=== PATIENT | female | born 1935 | race Caucasian/White ===

== ENCOUNTER 2016-07-01 13:53 | Inpatient (IN) | payer MEDICARE, OTHER ==
[~2016-07-01] VITALS: Ht 152.4 cm; Wt 44.0 kg
[~2016-07-01 13:53] MED LIST: ALBU2.5V13 IH; ALBU8.5H2 IH; ASPI81TA2 PO; DOCU100T2 PO; ENOX30DI SQ; FLUT1DIS27 IH; HYDR-3326 PO; LEVO500T15 PO; PANT40TA2 PO; SENN8.6T22 PO; TIOT18CA3 IH
--- NOTE | 2016-07-01 13:53 | NUR ---
BIB RA C/O SOB X 3 DAYS FROM HOME. NAD NOTED. PT AAO X3, STATES RELIEF UPON ARRIVAL. O2 SAT 100%. AWAITING MD FOR EVAL.
--- NOTE | 2016-07-01 14:18 | NUR ---
DAUGHTER AT BEDSIDE.
[2016-07-01] MEDS ORDERED: ALPRAZOLAM 0.25 MG TABLET PO ONE (14:30)
[2016-07-01 14:48] LABS: BASOPHILS % (AUTO) 0.5 % (0.0-2.0); EOSINOPHILS # (AUTO) 0.3 /CMM (0.0-0.7); EOSINOPHILS % (AUTO) 5.1 % (0.0-6.0); HEMATOCRIT 37 % (33-45); HEMOGLOBIN 12.4 g/dL (11.5-14.8); LYMPHOCYTES # (AUTO) 1.4 /CMM (0.8-4.8); LYMPHOCYTES % (AUTO) 23.5 % (20.0-44.0); MEAN CORPUSCULAR HEMOGLOBIN 32 PG (26.0-33.0); MEAN CORPUSCULAR HGB CONC 34 g/dl (31.0-36.0); MEAN CORPUSCULAR VOLUME 95 fL (82-100); MONOCYTES # (AUTO) 0.6 /CMM (0.1-1.30); MONOCYTES % (AUTO) 10.6 % (2.0-12.0); NEUTROPHILS # (AUTO) 3.8 /CMM (1.8-8.9); NEUTROPHILS % (AUTO) 60.3 % (43.0-81.0); PLATELET COUNT (AUTO) 249 /CMM (150-450); RDW COEFFICIENT OF VARIATION 12.7 (11.5-15.0); RED BLOOD CELL COUNT(AUTO) 3.91 MIL/uL (4.0-5.2); WHITE BLOOD COUNT (AUTO) 6.1 K/uL (4.3-11.0)
--- NOTE | 2016-07-01 14:48 | NUR ---
PER DAUGHTER WILL GIVE PATIENT THE XANAX 0.25; OK'D BY
[2016-07-01 14:58] LABS: CALCIUM, SERUM 9.4 mg/dL (8.5-10.1); CHLORIDE 105 mmol/L (98-107); CREATININE 0.6 mg/dL (0.6-1.3); GLUCOSE 105 mg/dL (74-106); POTASSIUM 4.6 mmol/L (3.5-5.1); SODIUM SERUM 142 mmol/L (136-145); UREA NITROGEN, BLOOD 23 mg/dL (7-18)
[2016-07-01 15:00] LABS: CARBON DIOXIDE 40 mmol/L (21-32)
[2016-07-01 15:05] LABS: TROPONIN I < 0.017 ng/mL (0.00-0.056)
[2016-07-01 15:10] LABS: B-TYPE NATRIURETIC PEPTIDE 103 PG/ML (0-125)
[2016-07-01] MEDS ORDERED: ALPR0.255 PO (15:48)
[2016-07-01] MEDS ORDERED: BUDE10.22 IH (15:48)
[2016-07-01] MEDS ORDERED: MULT1TAB73 PO (15:48)
[2016-07-01] MEDS ORDERED: CHOL100040 PO (15:48)
[2016-07-01] MEDS ORDERED: CRAN300T PO (15:48)
--- NOTE | 2016-07-01 15:50 | NUR ---
REPORT GIVEN TO LISA ROMERO FOR ALEE
[2016-07-01] MEDS ORDERED: CT SWABBABLE VALVE TRANS SET 1 EA INFUS.SET MC ONE (16:16)
[2016-07-01] MEDS ORDERED: IV NS 0.9% 250 ML IV ONE (16:16)
[2016-07-01] MEDS ORDERED: IOHEXOL-350 100 ML VIAL IV ONE (16:16)
[2016-07-01] MEDS ORDERED: ACETAMINOPHEN 325 MG TABLET PO PRN (17:00)
[2016-07-01] MEDS ORDERED: ONDANSETRON HCL/PF 4 MG/2 ML VIAL IVP PRN (17:00)
--- NOTE | 2016-07-01 17:00 | NUR ---
RN NOTES RECEIVED PT FROM ER- TRANSPORTED VIA GURNEY, ACCOMPANIED BY 1 TECH AND 1 RN. PT IN NO APPARENT DISTRESS. VS T- 98.4 BP- 136/80 P- 116 R- 22 O2 SAT @ 3LPM VIA NC -96%. PT ADMITTED FOR CHIEF COMPLAINT OF SHORTNESS OF BREATH. ADMITTED UNDER [facility], UNDER THE CARE OF DR ALEJANDRO. DIAGNOSIS- COPD EXACERBATION. PT ADMITTED FOR TELE SERVICES. UNABLE TO DO FULL SKIN AND BODY ASSESSMENT- PT ONLY ALLOWED UPPER BODY CHECK AT THIS TIME. NOTED INTACT. PT NOTED WITH SOME TRACE EDEMA ON BLE. DAUGHTER ON BEDSIDE. WILL CONTINUE TO MONITOR
[2016-07-01] MEDS: methylPREDNISolone SOD SUCC 40 MG/ML VIAL IV SCH (17:41)
--- NOTE | 2016-07-01 18:30 | NUR ---
RN NOTES PT IN BED. AWAKE, ALERT, ORIENTED X 3. IN NO APPARENT DISTRESS. RESPIRATIONS EVEN AND UNLABORED. DENIES PAIN AT THIS TIME. WILL ENDORSE TO ONCOMING SHIFT
[2016-07-01] MEDS ORDERED: ALBUTEROL FS 2.5 MG/3 ML VIAL.NEB NEB PRN (19:30)
[2016-07-01] MEDS: IPRATROPIUM NEB FS 0.5 MG/2.5 ML AMPUL.NEB NEB SCH (19:55)
[2016-07-01] MEDS: ALBUTEROL FS 2.5 MG/3 ML VIAL.NEB NEB SCH (19:55)
[2016-07-01 20:00] VITALS: BP 135/59
[2016-07-01] MEDS: SENNOSIDES 8.6 MG TABLET PO SCH (21:41)
[2016-07-01] MEDS: AZITHROMYCIN 250 MG TABLET PO SCH (21:41)
[2016-07-01 22:00] VITALS: BP 135/59
[2016-07-01] MEDS: Budesonide/Formoterol Fumarate (Symbicort 80-4.5 Mcg Inh INH SCH (22:59)
[2016-07-02] VITALS: BP 118/50
[2016-07-02] MEDS: ALBUTEROL FS 2.5 MG/3 ML VIAL.NEB NEB SCH ×4 (00:52→20:14)
[2016-07-02] MEDS: IPRATROPIUM NEB FS 0.5 MG/2.5 ML AMPUL.NEB NEB SCH ×4 (00:52→20:14)
[2016-07-02 04:00] VITALS: BP 101/52
[2016-07-02 07:52] LABS: BASOPHILS % (AUTO) 0.2 % (0.0-2.0); EOSINOPHILS % (AUTO) 0.1 % (0.0-6.0); HEMATOCRIT 34 % (33-45); HEMOGLOBIN 11.6 g/dL (11.5-14.8); LYMPHOCYTES # (AUTO) 0.9 /CMM (0.8-4.8); LYMPHOCYTES % (AUTO) 14.8 % (20.0-44.0); MEAN CORPUSCULAR HEMOGLOBIN 33 PG (26.0-33.0); MEAN CORPUSCULAR HGB CONC 34 g/dl (31.0-36.0); MEAN CORPUSCULAR VOLUME 96 fL (82-100); MONOCYTES # (AUTO) 0.6 /CMM (0.1-1.30); MONOCYTES % (AUTO) 9.7 % (2.0-12.0); NEUTROPHILS # (AUTO) 4.8 /CMM (1.8-8.9); NEUTROPHILS % (AUTO) 75.2 % (43.0-81.0); PLATELET COUNT (AUTO) 227 /CMM (150-450); RDW COEFFICIENT OF VARIATION 13.3 (11.5-15.0); RED BLOOD CELL COUNT(AUTO) 3.58 MIL/uL (4.0-5.2); WHITE BLOOD COUNT (AUTO) 6.3 K/uL (4.3-11.0)
[2016-07-02 08:00] VITALS: BP_SYST 104; BP_SYST 124; BP_DIAS 60
[2016-07-02 08:05] LABS: ALBUMIN 3.1 g/dL (3.4-5.0); BILIRUBIN,TOTAL 0.2 mg/dL (0.2-1.0); CALCIUM, SERUM 8.9 mg/dL (8.5-10.1); CREATININE 0.6 mg/dL (0.6-1.3); MAGNESIUM 2.4 mg/dL (1.8-2.4); PHOSPHORUS 3.1 mg/dL (2.5-4.9); POTASSIUM 5.1 mmol/L (3.5-5.1); TOTAL PROTEIN, SERUM 6.3 g/dL (6.4-8.2)
[2016-07-02] MEDS: CHOLECALCIFEROL 1,000 UNIT TABLET (VIT D3) PO SCH (08:19)
[2016-07-02] MEDS: PANTOPRAZOLE 40 MG TABLET.DR PO SCH (08:19)
[2016-07-02] MEDS: methylPREDNISolone SOD SUCC 40 MG/ML VIAL IV SCH ×3 (08:20→18:15)
[2016-07-02] MEDS: ASPIRIN 81 MG TAB.CHEW PO SCH (08:20)
[2016-07-02] MEDS: MULTIVITAMINS,THERAPEUTIC 1 UDTAB TABLET PO SCH (08:20)
[2016-07-02] MEDS: ALPRAZOLAM 0.25 MG TABLET PO SCH ×3 (08:20→18:15)
[2016-07-02] MEDS: DOCUSATE SODIUM 100 MG CAPSULE PO SCH (08:20)
[2016-07-02] MEDS ORDERED: CRANBERRY EXTRACT PO SCH (09:00)
[2016-07-02] MEDS: Budesonide/Formoterol Fumarate (Symbicort 80-4.5 Mcg Inh INH SCH (11:07)
[2016-07-02] MEDS ORDERED: IOHEXOL-350 100 ML VIAL IV ONE (12:00)
--- NOTE | 2016-07-02 14:39 | NUR ---
GOT A PHONE CALL FROM [facility] REGARDING MRSA SWAB RESULT. IT IS POSITIVE ON NARES.
[2016-07-02 16:00] VITALS: BP 103/58
--- NOTE | 2016-07-02 18:34 | NUR ---
PT. AWAKE, ALERT AND ORIENTED X4. DENIED PAIN AND SOB. CONTACT ISOLATION. SIDE RAILS UP. CALL LIGHT WITHIN REACH. MONITOR CLOSELY.
--- NOTE | 2016-07-02 19:30 | NUR ---
MS/RN RECEIVE PATIENT AWAKE, ALERT, ORIENTED, COMFORTABLE, NO C/O PAIN, NO DISTRESS NOTED, CALL LIGHT IN REACH. FALL PRECAUTION PER PROTOCOL. WILL MONITOR.
[2016-07-02 20:00] VITALS: BP 110/73
[2016-07-02] MEDS: AZITHROMYCIN 250 MG TABLET PO SCH (20:21)
[2016-07-03] MEDS: SENNOSIDES 8.6 MG TABLET PO SCH (00:59)
[2016-07-03] MEDS: Budesonide/Formoterol Fumarate (Symbicort 80-4.5 Mcg Inh INH SCH ×2 (00:59→12:15)
[2016-07-03] MEDS: ALBUTEROL FS 2.5 MG/3 ML VIAL.NEB NEB SCH ×2 (01:47→08:31)
[2016-07-03] MEDS: IPRATROPIUM NEB FS 0.5 MG/2.5 ML AMPUL.NEB NEB SCH ×2 (01:48→08:31)
--- NOTE | 2016-07-03 06:04 | NUR ---
MS/RN AWAKE, COMFORTABLE, NO CHANGE IN CONDITION. ALL NEEDS ATTENDED AT THIS TIME. WILL CONTIUE TO MONITOR.
--- NOTE | 2016-07-03 07:30 | NUR ---
RECEIVE PATIENT AWAKE, ALERT, ORIENTED, WITH O2 AT 2 L/ MIN, COMFORTABLE, NO C/O PAIN, NO DISTRESS NOTED, CALL LIGHT IN REACH. WILL CONTINUE TO MONITOR.
[2016-07-03 08:00] VITALS: BP 114/53
[2016-07-03 08:31] LABS: BASOPHILS % (AUTO) 0.2 % (0.0-2.0); HEMATOCRIT 34 % (33-45); HEMOGLOBIN 11.3 g/dL (11.5-14.8); LYMPHOCYTES # (AUTO) 1.1 /CMM (0.8-4.8); LYMPHOCYTES % (AUTO) 11.1 % (20.0-44.0); MEAN CORPUSCULAR HEMOGLOBIN 32 PG (26.0-33.0); MEAN CORPUSCULAR HGB CONC 34 g/dl (31.0-36.0); MEAN CORPUSCULAR VOLUME 96 fL (82-100); NEUTROPHILS % (AUTO) 78.7 % (43.0-81.0); PLATELET COUNT (AUTO) 228 /CMM (150-450); RDW COEFFICIENT OF VARIATION 13.1 (11.5-15.0); RED BLOOD CELL COUNT(AUTO) 3.52 MIL/uL (4.0-5.2); WHITE BLOOD COUNT (AUTO) 10.2 K/uL (4.3-11.0)
[2016-07-03] MEDS: MULTIVITAMINS,THERAPEUTIC 1 UDTAB TABLET PO SCH (08:38)
[2016-07-03] MEDS: methylPREDNISolone SOD SUCC 40 MG/ML VIAL IV SCH (08:39)
[2016-07-03] MEDS: CHOLECALCIFEROL 1,000 UNIT TABLET (VIT D3) PO SCH (08:39)
[2016-07-03] MEDS: PANTOPRAZOLE 40 MG TABLET.DR PO SCH (08:39)
[2016-07-03] MEDS: DOCUSATE SODIUM 100 MG CAPSULE PO SCH (08:39)
[2016-07-03] MEDS: ALPRAZOLAM 0.25 MG TABLET PO SCH (08:39)
[2016-07-03] MEDS: ASPIRIN 81 MG TAB.CHEW PO SCH (08:39)
[2016-07-03 08:40] LABS: CALCIUM, SERUM 8.9 mg/dL (8.5-10.1); CREATININE 0.7 mg/dL (0.6-1.3); MAGNESIUM 2.2 mg/dL (1.8-2.4); PHOSPHORUS 3.4 mg/dL (2.5-4.9)
--- NOTE | 2016-07-03 10:19 | NUR ---
DR. ALEJANDRO NOTIFIED ABOUT THE MRSA ON NARES AND ORDERED BACTROBAN OINTMENT Q12 HRS X14 DAYS AND ORDERED CEPACOL Q6 HRS PRN.
[2016-07-03] MEDS ORDERED: MENTHOL/CETYLPYRD (CEPACOL) 1 LOZ LOZENGE PO PRN ×2 (10:30→11:01)
[2016-07-03] MEDS ORDERED: MUPIROCIN OINT 2% 22 GM TUBE SCH (10:30)
[2016-07-03] MEDS ORDERED: AZIT250T PO (11:13)
--- NOTE | 2016-07-03 11:45 | NUR ---
PT. SEEN BY DR. ALEJANDRO AND WITH A DISCHARGE ORDER TO HOME. BELONGINGS READY AND DISCHARGE PAPERS READY. PT. WITHOUT DISTRESS AND ON STABLE FOR DISCHARGE.
--- NOTE | 2016-07-03 12:45 | NUR ---
PT. LEFT THE UNIT WITH BELONGINGS AND PICKED BY SON LAURENCE RANDALL. SON SIGNED THE DISCHARGE, PAPERS AND PT. INSTRUCTED ON MEDS TO CONTINUE AT HOME AND VERBALIZES UNDERSTANDING AND INSTRUCTED TO F/U PCP IN 3 DAYS AND AGREED. PT. WHEELED BY STAFF TO THE LOBBY WITH OWN OXYGEN. LEFT WITHOUT DISTRESS AND ON STABLE CONDITION. V/S TAKEN: BP 115/59, SC 89, OXYGEN SAT 96%, RR 20 AND TEMP 98.5.
== END 2016-07-03 12:45 | disposition home health service (06) | DRG 189 ==
LOC: ER 13:56 → MED 15:54 → TELE 22:15 → MED 07-02 08:51
PROVIDERS: ADMIT Internal Medicine; ATTEND Internal Medicine
DX: J96.01 Acute respiratory failure with hypoxia (principal); R53.2 Functional quadriplegia; J44.1 Chronic obstructive pulmonary disease with (acute) exacerbation; D68.59 Other primary thrombophilia; J06.9 Acute upper respiratory infection, unspecified; F41.9 Anxiety disorder, unspecified; I25.10 Atherosclerotic heart disease of native coronary artery without angina pectoris; I48.91 Unspecified atrial fibrillation; Z79.82 Long term (current) use of aspirin; I10 Essential (primary) hypertension; Z87.891 Personal history of nicotine dependence
CPT/HCPCS: 36415; 71010-TC; 80048-TC; 80053-TC; 83735-TC; 83880; 84100-TC; 84484-TC; 85025-TC; 85378-TC; 87081-TC; 93970-TC; 94799-TC; 97001-TC; A4606; J2920; J7050; Q9967; Z7610

== ENCOUNTER 2016-11-15 07:29 | Inpatient (IN) | payer MEDICARE, OTHER ==
[~2016-11-15 07:29] MED LIST changes: -ALBU2.5V13 IH; +ALPR0.255 PO; +AZIT250T PO; +BUDE10.22 IH; +CHOL100040 PO; +CRAN300T PO; -ENOX30DI SQ; -FLUT1DIS27 IH; -HYDR-3326 PO; -LEVO500T15 PO; +MULT1TAB73 PO; -PANT40TA2 PO; -TIOT18CA3 IH
[2016-11-15] MEDS ORDERED: ONDANSETRON HCL/PF 4 MG/2 ML VIAL ONE (07:40)
[2016-11-15] MEDS ORDERED: MORPHINE SULFATE INJ 4 MG/ML DISP.SYRIN ONE (07:41)
[2016-11-15] MEDS ORDERED: MORPHINE SULFATE INJ 2 MG/ML DISP.SYRIN IV ONE (08:00)
[2016-11-15] MEDS ORDERED: ONDANSETRON HCL/PF - ER 4 MG/2 ML VIAL IV ONE (08:00)
[2016-11-15] MEDS ORDERED: Z GUARD REMEDY 2 OZ OINT TP PRN (11:30)
[2016-11-15] MEDS ORDERED: ZOLPIDEM TARTRATE 5 MG TABLET PO PRN (11:30)
[2016-11-15] MEDS ORDERED: ONDANSETRON HCL/PF 4 MG/2 ML VIAL IVP PRN (11:30)
[2016-11-15] MEDS ORDERED: HYDROCODONE/APAP 5/325MG 1 EACH TABLET PO PRN (11:30)
[2016-11-15] MEDS ORDERED: ACETAMINOPHEN 325 MG TABLET PO PRN (11:30)
[2016-11-15] MEDS ORDERED: ENOXAPARIN SODIUM 40 MG/0.4 ML DISP.SYRIN SQ SCH (11:42)
[2016-11-15] MEDS ORDERED: ALBUTEROL FS 2.5 MG/0.5 ML VIAL.NEB NEB PRN (13:30)
[2016-11-15] MEDS ORDERED: Budesonide/Formoterol Fumarate (Symbicort 80-4.5 Mcg Inh INH SCH (17:00)
[2016-11-15] MEDS ORDERED: PROAIR INH PRN (18:30)
[2016-11-15] MEDS: Budesonide/Formoterol Fumarate (Symbicort 80-4.5 Mcg Inh INH SCH (21:00)
[2016-11-15] MEDS: SENNOSIDES 8.6 MG TABLET PO SCH (22:22)
[2016-11-16] MEDS: ENOXAPARIN SODIUM 30 MG/0.3 ML DISP.SYRIN SQ SCH (09:44)
[2016-11-16] MEDS: DOCUSATE SODIUM 100 MG CAPSULE PO SCH (09:44)
[2016-11-16] MEDS: MULTIVITAMINS,THERAGRAN 1 UDTAB TABLET PO SCH (09:44)
[2016-11-16] MEDS: PANTOPRAZOLE 40 MG TABLET.DR PO SCH (09:44)
[2016-11-16] MEDS: ASPIRIN 81 MG TAB.CHEW PO SCH (09:44)
[2016-11-16] MEDS ORDERED: KETOROLAC TROMETHAMINE INJ 30 MG/ML VIAL IV STA (10:35)
[2016-11-16] MEDS: NAPROXEN 250 MG TABLET PO SCH ×2 (12:19→16:33)
[2016-11-16] MEDS: Budesonide/Formoterol Fumarate (Symbicort 80-4.5 Mcg Inh INH SCH ×2 (13:17→21:13)
[2016-11-16] MEDS: ALPRAZOLAM 0.25 MG TABLET PO PRN ×2 (14:28→23:06)
[2016-11-16] MEDS: ATORVASTATIN 10 MG TABLET PO SCH (21:13)
[2016-11-16] MEDS: SENNOSIDES 8.6 MG TABLET PO SCH (21:13)
[2016-11-17] MEDS: Budesonide/Formoterol Fumarate (Symbicort 80-4.5 Mcg Inh INH SCH ×2 (07:00→21:26)
[2016-11-17] MEDS: ASPIRIN 81 MG TAB.CHEW PO SCH (09:44)
[2016-11-17] MEDS: DOCUSATE SODIUM 100 MG CAPSULE PO SCH (09:44)
[2016-11-17] MEDS: MULTIVITAMINS,THERAGRAN 1 UDTAB TABLET PO SCH (09:44)
[2016-11-17] MEDS: NAPROXEN 250 MG TABLET PO SCH ×3 (09:44→16:33)
[2016-11-17] MEDS: ENOXAPARIN SODIUM 30 MG/0.3 ML DISP.SYRIN SQ SCH (09:45)
[2016-11-17] MEDS: PANTOPRAZOLE 40 MG TABLET.DR PO SCH (09:45)
[2016-11-17] MEDS: ALPRAZOLAM 0.25 MG TABLET PO PRN ×2 (14:23→23:11)
[2016-11-17] MEDS: ATORVASTATIN 10 MG TABLET PO SCH (21:26)
[2016-11-17] MEDS: SENNOSIDES 8.6 MG TABLET PO SCH (21:26)
[2016-11-18] MEDS: Budesonide/Formoterol Fumarate (Symbicort 80-4.5 Mcg Inh INH SCH ×2 (07:15→22:29)
[2016-11-18] MEDS: DOCUSATE SODIUM 100 MG CAPSULE PO SCH (08:28)
[2016-11-18] MEDS: NAPROXEN 250 MG TABLET PO SCH ×3 (08:28→17:10)
[2016-11-18] MEDS: PANTOPRAZOLE 40 MG TABLET.DR PO SCH (08:28)
[2016-11-18] MEDS: MULTIVITAMINS,THERAGRAN 1 UDTAB TABLET PO SCH (08:28)
[2016-11-18] MEDS: ASPIRIN 81 MG TAB.CHEW PO SCH (08:28)
[2016-11-18] MEDS: ENOXAPARIN SODIUM 30 MG/0.3 ML DISP.SYRIN SQ SCH (08:29)
[2016-11-18] MEDS: ALPRAZOLAM 0.25 MG TABLET PO PRN ×2 (13:48→22:53)
[2016-11-18] MEDS: ATORVASTATIN 10 MG TABLET PO SCH (21:02)
[2016-11-18] MEDS: SENNOSIDES 8.6 MG TABLET PO SCH (21:03)
[2016-11-19] MEDS: Budesonide/Formoterol Fumarate (Symbicort 80-4.5 Mcg Inh INH SCH (06:33)
[2016-11-19] MEDS: ASPIRIN 81 MG TAB.CHEW PO SCH (09:10)
[2016-11-19] MEDS: NAPROXEN 250 MG TABLET PO SCH ×3 (09:11→16:19)
[2016-11-19] MEDS: PANTOPRAZOLE 40 MG TABLET.DR PO SCH (09:11)
[2016-11-19] MEDS: DOCUSATE SODIUM 100 MG CAPSULE PO SCH (09:11)
[2016-11-19] MEDS: MULTIVITAMINS,THERAGRAN 1 UDTAB TABLET PO SCH (09:11)
[2016-11-19] MEDS: ENOXAPARIN SODIUM 30 MG/0.3 ML DISP.SYRIN SQ SCH (09:15)
[2016-11-19] MEDS: ALPRAZOLAM 0.25 MG TABLET PO PRN (14:17)
[2016-11-19] MEDS: ATORVASTATIN 10 MG TABLET PO SCH (21:39)
[2016-11-19] MEDS: SENNOSIDES 8.6 MG TABLET PO SCH (21:39)
[2016-11-20] MEDS: ALPRAZOLAM 0.25 MG TABLET PO PRN ×2 (00:33→14:11)
[2016-11-20] MEDS: Budesonide/Formoterol Fumarate (Symbicort 80-4.5 Mcg Inh INH SCH ×2 (00:34→11:36)
[2016-11-20] MEDS: ENOXAPARIN SODIUM 30 MG/0.3 ML DISP.SYRIN SQ SCH (10:04)
[2016-11-20] MEDS: PANTOPRAZOLE 40 MG TABLET.DR PO SCH (10:04)
[2016-11-20] MEDS: ASPIRIN 81 MG TAB.CHEW PO SCH (10:04)
[2016-11-20] MEDS: DOCUSATE SODIUM 100 MG CAPSULE PO SCH (10:05)
[2016-11-20] MEDS: MULTIVITAMINS,THERAGRAN 1 UDTAB TABLET PO SCH (10:05)
[2016-11-20] MEDS ORDERED: ENOX30DI SQ (11:30)
[2016-11-20] MEDS ORDERED: ATOR10TA PO (11:30)
[2016-11-20] MEDS: NAPROXEN 250 MG TABLET PO SCH ×3 (11:36→17:07)
== END 2016-11-20 21:11 | DRG 543 ==
DX: M84.48XA Pathological fracture, other site, initial encounter for fracture (principal); J96.11 Chronic respiratory failure with hypoxia; Z99.81 Dependence on supplemental oxygen; J44.9 Chronic obstructive pulmonary disease, unspecified; Z68.1 Body mass index [BMI] 19.9 or less, adult; Z82.49 Family history of ischemic heart disease and other diseases of the circulatory system; W01.0XXA Fall on same level from slipping, tripping and stumbling without subsequent striking against object, initial encounter; Z87.891 Personal history of nicotine dependence; M85.80 Other specified disorders of bone density and structure, unspecified site; M43.10 Spondylolisthesis, site unspecified; F40.240 Claustrophobia; E78.5 Hyperlipidemia, unspecified; F41.9 Anxiety disorder, unspecified; I25.10 Atherosclerotic heart disease of native coronary artery without angina pectoris; Z79.82 Long term (current) use of aspirin

== ENCOUNTER 2016-12-30 10:32 | Inpatient (IN) | payer MEDICARE, OTHER ==
[~2016-12-30] VITALS: Ht 157.5 cm; Wt 41.3 kg
[~2016-12-30 10:32] MED LIST changes: +ATOR10TA PO; -AZIT250T PO; +ENOX30DI SQ
[2016-12-30] MEDS ORDERED: IV NS 0.9% 500 ML BAG IV ONE (11:00)
--- NOTE | 2016-12-30 11:00 | NUR ---
BIB RA 878 FROM HOME,DARK STOOL NOTED IN HER DIAPER WHEN CHANGED THIS AM, NAD NOTED, VSS, RESP EVEN AND UNLABORED. WAITING FOR MD UREÑA.
[2016-12-30 11:03] LABS: BASOPHILS % (AUTO) 0.3 % (0.0-2.0); EOSINOPHILS % (AUTO) 0.3 % (0.0-6.0); HEMATOCRIT 35 % (33-45); HEMOGLOBIN 11.3 g/dL (11.5-14.8); LYMPHOCYTES # (AUTO) 0.9 /CMM (0.8-4.8); LYMPHOCYTES % (AUTO) 8.9 % (20.0-44.0); MEAN CORPUSCULAR HEMOGLOBIN 32 PG (26.0-33.0); MEAN CORPUSCULAR HGB CONC 32 g/dl (31.0-36.0); MEAN CORPUSCULAR VOLUME 98 fL (82-100); MONOCYTES # (AUTO) 0.7 /CMM (0.1-1.30); NEUTROPHILS # (AUTO) 8.8 /CMM (1.8-8.9); NEUTROPHILS % (AUTO) 83.5 % (43.0-81.0); PLATELET COUNT (AUTO) 233 /CMM (150-450); RDW COEFFICIENT OF VARIATION 13.7 (11.5-15.0); RED BLOOD CELL COUNT(AUTO) 3.55 MIL/uL (4.0-5.2); WHITE BLOOD COUNT (AUTO) 10.5 K/uL (4.3-11.0)
[2016-12-30 11:17] LABS: CALCIUM, SERUM 8.8 mg/dL (8.5-10.1); CARBON DIOXIDE 36 mmol/L (21-32); CHLORIDE 108 mmol/L (98-107); CREATININE 0.6 mg/dL (0.6-1.3); GLUCOSE 94 mg/dL (74-106); POTASSIUM 3.9 mmol/L (3.5-5.1); SODIUM SERUM 146 mmol/L (136-145); UREA NITROGEN, BLOOD 22 mg/dL (7-18)
[2016-12-30 11:19] LABS: INR 0.92 (0.87-1.13); PROTHROMBIN TIME 9.6 SECS (9.5-12.7)
[2016-12-30 11:28] LABS: ALANINE AMINOTRANSFERASE 21 U/L (12-78); ALBUMIN 3.2 g/dL (3.4-5.0); ALKALINE PHOSPHATASE 74 U/L (46-116); ASPARTATE AMINOTRANSFERASE 20 U/L (15-37); BILIRUBIN,DIRECT 0.1 mg/dL (0.0-0.2); BILIRUBIN,TOTAL 0.5 mg/dL (0.2-1.0); TOTAL PROTEIN, SERUM 6.3 g/dL (6.4-8.2)
--- NOTE | 2016-12-30 12:17 | NUR ---
PANEL LAWYER CRIMINAL PAGED
[2016-12-30] MEDS ORDERED: SERT25TA PO (12:47)
[2016-12-30] MEDS ORDERED: PANT40TA4 PO (12:47)
[2016-12-30] MEDS ORDERED: ONDANSETRON 4 MG TAB.RAPDIS PO STA (13:01)
[2016-12-30] MEDS ORDERED: MORPHINE SULFATE INJ 4 MG/ML DISP.SYRIN IV STA (13:01)
[2016-12-30] MEDS: BUDESONIDE INH SCH ×2 (13:04→17:00)
[2016-12-30] MEDS: FORMOTEROL FUMARATE INH SCH ×2 (13:04→17:00)
[2016-12-30] MEDS ORDERED: ONDANSETRON 4 MG TAB.RAPDIS ONE (13:05)
[2016-12-30] MEDS ORDERED: MORPHINE SULFATE INJ 4 MG/ML DISP.SYRIN ONE (13:05)
[2016-12-30 13:45] VITALS: BP 96/51
--- NOTE | 2016-12-30 13:45 | NUR ---
RN INITIAL NOTE PATIENT TRANSFERRED FROM EMERGENCY ROOM VIA [facility]. RECEIVED REPORT FROM MAR. AWAKE, ALERT AND ORIENTED. ABLE TO MAKE NEEDS KNOWN. NO S/S OF PAIN OR DISCOMFORT. DENIES PAIN AT THIS TIME. SINUS RHYTHM ON TELE MONITOR. RESPIRATIONS ARE EVEN AND UNLABORED. SATING WELL ON 2L NASAL CANULA. NO S/S OF RESPIRATORY DISTRESS OR SOB. IV SITE FLUSHED, PATENT. SKIN IS WARM AND DRY TO TOUCH. CALL LIGHT AND BELONGINGS WITHIN EASY REACH. WILL CONTINUE TO MONITOR
[2016-12-30 14:00] VITALS: BP 121/49
[2016-12-30] MEDS ORDERED: MAGNESIUM HYDROXIDE 30 ML UDC PO PRN (14:00)
[2016-12-30] MEDS ORDERED: ALBUTEROL SULFATE 8 GM HFA.AER.AD IH SCH (14:00)
[2016-12-30] MEDS ORDERED: ACETAMINOPHEN 325 MG TABLET PO PRN (14:00)
[2016-12-30] MEDS ORDERED: ONDANSETRON HCL/PF 4 MG/2 ML VIAL IVP PRN (14:00)
[2016-12-30] MEDS ORDERED: ZOLPIDEM TARTRATE 5 MG TABLET PO PRN (14:00)
[2016-12-30] MEDS ORDERED: MAG HYDROX/AL HYDROX/SIMETH 30 ML UDC PO PRN (14:00)
[2016-12-30] MEDS: IV NS 0.9% 1,000 ML IV PRN (14:52)
[2016-12-30] MEDS: POLYETHYLENE GLYCOL 3350 17 GM POWD.PACK PO SCH ×2 (15:03→21:20)
[2016-12-30] MEDS: DOCUSATE SODIUM 100 MG CAPSULE PO SCH ×2 (15:03→17:00)
[2016-12-30] MEDS ORDERED: MYRBETRIQ 25 MG PO (18:54)
--- NOTE | 2016-12-30 18:56 | NUR ---
RN CLOSING NOTE CARRIED OUT ALL MD ORDERS, PATIENT KEPT CLEAN AND DRY. ANTICIPATED NEEDS. SAFETY PRECAUTIONS IN PLACE AT ALL TIMES. REPORT WILL BE GIVEN TO NEXT SHIFT RN FOR CONTINUATION OF CARE
--- NOTE | 2016-12-30 19:25 | NUR ---
RN NOTES PT AWAKE ON BED. TOLERATED O2 2LPM VIA NC, HOB TOLERATED WELL SATING 94%. AOX3 ABLE TO VERBALIZED NEEDS. DENIES PAIN AT THIS TIME, WARMTH TO TOUCH, AFEBRILE. IV SITE ON LAC G 20 INTACT AND PATENT RUNNING WITH NS @ 75 CC/HR INTACT AND PATENT. FLUSHED WELL AND NO INFILTRATION SHOWS. OFFERED AND ENCOURAGED TO DRINK MORE FLUIDS TO ELIMINATE BOWEL. KEPT PT CLEAN AND DRY AND COMFORTABLE IN BED. WILL CONTINUE TO MONITOR.
[2016-12-30 20:00] VITALS: BP 105/60
[2016-12-30] MEDS: SENNOSIDES 8.6 MG TABLET PO SCH (21:20)
[2016-12-30] MEDS: BISACODYL (5 MG) 5 MG TABLET.DR PO SCH (21:20)
[2016-12-31] VITALS: BP 121/58
[2016-12-31 04:00] VITALS: BP 97/50
[2016-12-31] MEDS: ALBUTEROL FS 2.5 MG/3 ML VIAL.NEB NEB SCH ×6 (05:54→23:14)
[2016-12-31] MEDS: BUDESONIDE INH SCH ×2 (07:00→17:24)
[2016-12-31] MEDS: FORMOTEROL FUMARATE INH SCH ×2 (07:00→17:24)
--- NOTE | 2016-12-31 07:00 | NUR ---
RN NOTES PT ASLEEP AND RESTING WELL. O2 2-3LPM VIA NC TOLERATED WELL. NOTED WITH EPISODE OF SOB DURING DIAPER CHANGE. KEPT HOB ELEVATED ALL THE TIME. INCONTINENT CARE RENDERED. ALL DUE MEDICIENTOELRATED WELL. ENDORSED CONTINUITY OF CARE TO AM NURSE
--- NOTE | 2016-12-31 07:05 | NUR ---
RN INITIAL NOTE PATIENT RECEIVED IN BED. AWAKE, ALERT AND ORIENTED. ABLE TO MAKE NEEDS KNOWN. NO S/S OF PAIN OR DISCOMFORT. DENIES PAIN AT THIS TIME. PATIENT IS SINUS RHYTHM ON TELE MONITOR WITH HEART RATE OF 105, RESPIRATIONS ARE EVEN AND UNLABORED. SATING WELL ON ROOM AIR. NO S/S OF RESPIRATORY DISTRESS OR SOB. SKIN IS WARM AND DRY TO TOUCH. IV SITE FLUSHED, PATENT. SAFETY PRECAUTIONS IMPLEMENTED. BED IN LOCKED, LOW POSITION WITH TWO SIDE RAILS UP. CALL LIGHT AND BELONGINGS WITHIN EASY REACH. WILL CONTINUE TO MONITOR.
[2016-12-31 07:47] LABS: BASOPHILS % (AUTO) 0.1 % (0.0-2.0); EOSINOPHILS % (AUTO) 0.1 % (0.0-6.0); HEMATOCRIT 32 % (33-45); HEMOGLOBIN 10.5 g/dL (11.5-14.8); LYMPHOCYTES % (AUTO) 9.2 % (20.0-44.0); MEAN CORPUSCULAR HEMOGLOBIN 33 PG (26.0-33.0); MEAN CORPUSCULAR HGB CONC 33 g/dl (31.0-36.0); MEAN CORPUSCULAR VOLUME 100 fL (82-100); MONOCYTES # (AUTO) 0.6 /CMM (0.1-1.30); MONOCYTES % (AUTO) 5.9 % (2.0-12.0); NEUTROPHILS # (AUTO) 9.1 /CMM (1.8-8.9); NEUTROPHILS % (AUTO) 84.7 % (43.0-81.0); PLATELET COUNT (AUTO) 215 /CMM (150-450); RDW COEFFICIENT OF VARIATION 13.9 (11.5-15.0); RED BLOOD CELL COUNT(AUTO) 3.21 MIL/uL (4.0-5.2); WHITE BLOOD COUNT (AUTO) 10.7 K/uL (4.3-11.0)
[2016-12-31 08:00] VITALS: BP 103/39
[2016-12-31 08:16] LABS: CALCIUM, SERUM 8.5 mg/dL (8.5-10.1); CARBON DIOXIDE 34 mmol/L (21-32); CHLORIDE 107 mmol/L (98-107); CREATININE 0.4 mg/dL (0.6-1.3); GLUCOSE 71 mg/dL (74-106); MAGNESIUM 1.8 mg/dL (1.8-2.4); PHOSPHORUS 3.1 mg/dL (2.5-4.9); POTASSIUM 4.8 mmol/L (3.5-5.1); SODIUM SERUM 145 mmol/L (136-145); UREA NITROGEN, BLOOD 18 mg/dL (7-18)
[2016-12-31] MEDS: PANTOPRAZOLE 40 MG TABLET.DR PO SCH (08:57)
[2016-12-31] MEDS: SERTRALINE HCL 25 MG TABLET PO SCH (08:57)
[2016-12-31] MEDS: DOCUSATE SODIUM 100 MG CAPSULE PO SCH ×2 (08:57→16:42)
[2016-12-31] MEDS ORDERED: ASPIRIN 81 MG TAB.CHEW PO SCH (09:00)
[2016-12-31] MEDS: ALPRAZOLAM 0.25 MG TABLET PO PRN (10:10)
[2016-12-31 12:00] VITALS: BP 113/55
[2016-12-31] MEDS: HYDROCODONE/APAP 5/325MG 1 EACH TABLET PO PRN ×2 (12:22→16:42)
--- NOTE | 2016-12-31 15:00 | NUR ---
RN CLOSING NOTE PATIENT DISCHARGED. GOING HOME. PAPERWORK COMPLETE. IV SITE REMOVED. ID BAND REMOVED. LEFT VIA TAXI.
[2016-12-31 16:00] VITALS: BP 107/45
--- NOTE | 2016-12-31 19:04 | NUR ---
RN CLOSING NOTE ALL MD ORDERS CARRIED OUT. PATIENT KEPT CLEAN AND DRY. NEEDS ANTICIPATED. SAFETY PRECAUTIONS IN PLACE AT ALL TIMES. WILL GIVE REPORT TO PM RN FOR ALEE
[2016-12-31 20:00] VITALS: BP 92/50
[2016-12-31] MEDS: SENNOSIDES 8.6 MG TABLET PO SCH (21:48)
[2016-12-31] MEDS: BISACODYL (5 MG) 5 MG TABLET.DR PO SCH (21:49)
[2016-12-31] MEDS: POLYETHYLENE GLYCOL 3350 17 GM POWD.PACK PO SCH (21:49)
--- NOTE | 2016-12-31 22:00 | NUR ---
Patient is alert and pleasant, she lives locally with her . She ambulates with assistive devices, requires min-mod assist with adl's. Has adequate DME: hosp bed, walker, wheelchair, shower chair, Home o2, grab bars. She is currently on service with [facility] [phone] / [phone].Has good family support, has 8-9hrs/day caregiver. Son Abdiaziz will provide a ride to home once patient is discharge. Addendum: 12/31/16 at 2200 by NELL DANG RN Amended: Links added.
--- NOTE | 2016-12-31 23:00 | NUR ---
RN NOTES PATIENT RESTING COMFORTABLY IN BED WITH NO RESPIRATORY DISTRESS OF SHORTNESS OF BREATH. BREATHING EVEN AND UNLABORED. O2 02 @3LPM VIA NASAL CANNULA TOLERATING WELL. ALERT AND ORIENTED. VERBALLY ABLE TO COMMUNICATE NEEDS. NO COMPLAINT OF PAIN OF THIS TIME. KEPT CLEAN AND DRY. WILL CONTINUE TO MONITOR.
[2017-01-01] VITALS: BP 125/37
--- NOTE | 2017-01-01 | NUR ---
PIANO REGULATOR INSPECTOR: NO ALEE AT THIS TIME. PT REMAINED A/O X 3. NO ACTIVE BLEEDING NOTED. VS WITHIN HER BASELINE. REMINDED PT THAT SHE WILL BE STARTED ON NPO STATUS FOR EGD PROCEDURE LATER TODAY AND VERBALIZED UNDERSTANDING.
[2017-01-01] MEDS: IV NS 0.9% 1,000 ML IV PRN ×2 (00:03→14:55)
[2017-01-01 04:00] VITALS: BP_SYST 126; BP_SYST 153; BP_DIAS 47; BP_DIAS 58
[2017-01-01] MEDS: ALBUTEROL FS 2.5 MG/3 ML VIAL.NEB NEB SCH ×6 (04:03→23:59)
--- NOTE | 2017-01-01 06:45 | NUR ---
POACHER WRINGER OPERATOR: PT REMAINED IN STABLE CONDITION. NO ACUTE DISTRESS, NO C/O PAIN. VS WITHIN HER BASELINE.
--- NOTE | 2017-01-01 07:15 | NUR ---
RN INITIAL NOTES: REC'D PT AWAKE ON BED, NOT IN ANY DISTRESS, A/OX 3, ABLE TO MAKE NEEDS KNOWN. ON O2 AT 2-3LPM/NC, NO SOB. ON TELEMONITOR, SR/ST. HAS L AC G20, PL, PATENT & INTACT W/ NS X 75 CC/HR INFUSING WELL. PT ON NPO EXCEPT MEDS SINCE 12MN FOR EGD PROCEDURE IN PM. PROVIDED COMFORT & SAFETY MEASURES. DUKE LIGHT PLACED W/IN REACH. BED KEPT LOW & IN LOCKED POS. PRE-OP CHECKLIST DONE. CONSENT IN. WILL CONTINUE TO MONITOR.
[2017-01-01 08:00] VITALS: BP 121/68
[2017-01-01] MEDS: FORMOTEROL FUMARATE INH SCH ×2 (08:57→17:53)
[2017-01-01] MEDS: BUDESONIDE INH SCH ×2 (08:57→17:53)
[2017-01-01] MEDS: SERTRALINE HCL 25 MG TABLET PO SCH (08:58)
[2017-01-01] MEDS: PANTOPRAZOLE 40 MG TABLET.DR PO SCH (08:58)
[2017-01-01] MEDS: DOCUSATE SODIUM 100 MG CAPSULE PO SCH ×2 (08:58→17:56)
[2017-01-01] MEDS: Z GUARD REMEDY 2 OZ OINT TP PRN (08:59)
[2017-01-01] MEDS: ALPRAZOLAM 0.25 MG TABLET PO PRN ×2 (10:45→22:33)
[2017-01-01 12:00] VITALS: BP 123/70
[2017-01-01 15:39] LABS: APPEARANCE,URINE CLOUDY (CLEAR); BILIRUBIN,URINE NEGATIVE (NEGATIVE); BLOOD, URINE 2+ Ery/uL (NEGATIVE); COLOR,URINE YELLOW (YELLOW); KETONES,URINE 1+ (NEGATIVE); LEUKOCYTE ESTERASE ,URINE NEGATIVE (NEGATIVE); NITRITE, URINE NEGATIVE (NEGATIVE); PH,URINE 5.5 (5.0-8.0); PROTEIN,URINE NEGATIVE (NEGATIVE); UGLUCOSE NEGATIVE (NEGATIVE); UROBILINOGEN,URINE 0.2 EU/dL (0.2)
[2017-01-01 16:00] VITALS: BP 128/59
--- NOTE | 2017-01-01 16:32 | NUR ---
RN NOTES: PT PICKED UP BY OR NURSES FOR EGD PROCEDURE.
[2017-01-01 16:36] LABS: BACTERIA,URINE Many /HPF (None Seen); SQUAMOUS EPITHELIAL CELL,UR Moderate /HPF (None Seen); URINE AMORPHOUS URATE Many /HPF (None Seen)
--- NOTE | 2017-01-01 18:56 | NUR ---
RN CLOSING NOTES: NO ACUTE CHANGES NOTED W/IN SHIFT. PT TOLERATED O2 AT 2-3LPM/NC, NO SOB. ON TELEMONITOR, STILL SR/ST. LFA G20, PL, KEPT PATENT & INTACT W/ NS X 75 CC/HR INFUSING WELL. PT S/P EGD, STARTED ON FULL LIQUID DIET PER MD'S ORDER ADVANCED DIET TOLERATED. NO NAUSEA/VOMITING NOTED. PT KEPT WELL RESTED. NEEDS ATTENDED. CALL LIGHT PLACED W/IN REACH. BED KEPT LOW & IN LOCKED POS. CN MADE AWARE THAT DTR WANTED HER MOM TO BE DC TO HOME EARLY POSSIBLE. WILL ENDORSE TO PM RN FOR ALEE.
[2017-01-01] MEDS ORDERED: ANESTHESIA TRAY IN PYXIS 1 EA TRAY MC ONE (19:09)
[2017-01-01 20:00] VITALS: BP_SYST 139; BP_SYST 157; BP_DIAS 68; BP_DIAS 74
--- NOTE | 2017-01-01 20:00 | NUR ---
RN NOTES PATIENT IN BED, AWAKE, ALERT AND ORIENTED. VERBALLY COMMUNICATE NEEDS. NO RESPIRATORY DISTRESS OR SHORTNESS OF BREATH. NO COMPLAINT OF PAIN OR DISCOMFORT. ON @2LPM VIA NASAL CANNULA TOLERATING WELL. KEPT CLEAN AND DRY. WILL CONTINUE TO MONITOR.
[2017-01-01] MEDS: SENNOSIDES 8.6 MG TABLET PO SCH (21:13)
[2017-01-01] MEDS: BISACODYL (5 MG) 5 MG TABLET.DR PO SCH (21:13)
[2017-01-01] MEDS: POLYETHYLENE GLYCOL 3350 17 GM POWD.PACK PO SCH (21:13)
[2017-01-02] VITALS: BP 110/59
[2017-01-02] MEDS: ALBUTEROL FS 2.5 MG/3 ML VIAL.NEB NEB SCH ×3 (03:23→10:58)
--- NOTE | 2017-01-02 03:24 | NUR ---
RT PT REQUESTED TO CONTINUE TX @ 7AM. PT WANT TO SLEEP. NO SOB OR DISTRESS NOTED.
[2017-01-02 04:00] VITALS: BP 122/53
[2017-01-02] MEDS: IV NS 0.9% 1,000 ML IV PRN (05:47)
--- NOTE | 2017-01-02 06:29 | NUR ---
RN CLOSING NOTES NO EPISODE OF RESPIRATORY DISTRESS. BREATHING EVEN AND UNLABORED. NO SIGNIFICANT CHANGE OF CONDITION. KEPT CLEAN AND DRY. WILL ENDORSE TO AM SHIFT FOR CONTINUITY OF CARE.
--- NOTE | 2017-01-02 07:15 | NUR ---
RN INITIAL NOTES: REC'D PT AWAKE ON BED, NOT IN ANY DISTRESS, A/OX 3, ABLE TO MAKE NEEDS KNOWN. ON O2 AT 2-3LPM/NC, NO SOB. ON TELEMONITOR, SR/ST. HAS LFA G20, PL, PATENT & INTACT W/ NS X 75 CC/HR INFUSING WELL. PROVIDED COMFORT & SAFETY MEASURES. DUKE LIGHT PLACED W/IN REACH. BED KEPT LOW & IN LOCKED POS. WILL CONTINUE TO MONITOR.
[2017-01-02 07:55] LABS: EOSINOPHILS # (AUTO) 0.1 /CMM (0.0-0.7); EOSINOPHILS % (AUTO) 1.5 % (0.0-6.0); HEMATOCRIT 31 % (33-45); HEMOGLOBIN 10.3 g/dL (11.5-14.8); LYMPHOCYTES # (AUTO) 0.7 /CMM (0.8-4.8); LYMPHOCYTES % (AUTO) 7.8 % (20.0-44.0); MEAN CORPUSCULAR HEMOGLOBIN 33 PG (26.0-33.0); MEAN CORPUSCULAR HGB CONC 33 g/dl (31.0-36.0); MEAN CORPUSCULAR VOLUME 99 fL (82-100); MONOCYTES # (AUTO) 0.8 /CMM (0.1-1.30); MONOCYTES % (AUTO) 8.9 % (2.0-12.0); NEUTROPHILS # (AUTO) 7.6 /CMM (1.8-8.9); NEUTROPHILS % (AUTO) 81.8 % (43.0-81.0); PLATELET COUNT (AUTO) 225 /CMM (150-450); RDW COEFFICIENT OF VARIATION 13.1 (11.5-15.0); RED BLOOD CELL COUNT(AUTO) 3.12 MIL/uL (4.0-5.2); WHITE BLOOD COUNT (AUTO) 9.3 K/uL (4.3-11.0)
[2017-01-02 08:00] VITALS: BP 112/38
[2017-01-02 08:15] LABS: CALCIUM, SERUM 8.2 mg/dL (8.5-10.1); CARBON DIOXIDE 31 mmol/L (21-32); CHLORIDE 105 mmol/L (98-107); CREATININE 0.5 mg/dL (0.6-1.3); GLUCOSE 72 mg/dL (74-106); MAGNESIUM 1.8 mg/dL (1.8-2.4); PHOSPHORUS 2.8 mg/dL (2.5-4.9); POTASSIUM 3.7 mmol/L (3.5-5.1); SODIUM SERUM 143 mmol/L (136-145); UREA NITROGEN, BLOOD 9 mg/dL (7-18)
[2017-01-02] MEDS: DOCUSATE SODIUM 100 MG CAPSULE PO SCH (08:45)
[2017-01-02] MEDS: SERTRALINE HCL 25 MG TABLET PO SCH (08:45)
[2017-01-02] MEDS: BUDESONIDE INH SCH (08:46)
[2017-01-02] MEDS: Z GUARD REMEDY 2 OZ OINT TP PRN (08:46)
[2017-01-02] MEDS: PANTOPRAZOLE 40 MG TABLET.DR PO SCH (08:46)
[2017-01-02] MEDS: FORMOTEROL FUMARATE INH SCH (08:46)
[2017-01-02] MEDS: ALPRAZOLAM 0.25 MG TABLET PO PRN (09:26)
--- NOTE | 2017-01-02 11:21 | NUR ---
RN NOTES: PT SEEN AND EXAMINED BY SR. SAM. BETH TO BE DC TO HOME. RX PROVIDED.
[2017-01-02] MEDS ORDERED: PANT40TA2 PO (11:36)
--- NOTE | 2017-01-02 11:45 | NUR ---
ADMISSIONS SPECIALIST NOTES: PT DC'D TO HOME, SELF CARE ORDERED. PT SEEN AND EXAMINED BY DR. SCHAFFER PRIOR TO DC. PT A/O X3, ABLE TO MAKE NEEDS KNOWN, NOT IN ANY DISTRESS. IV ACCESS REMOVED, PRESSURE DRESSING APPLIED, NO S/SX OF INFECTION/INFILTRATION NOTED. ID BAND REMOVED. NO WOUNDS NOTED. ALL BELONGINGS SENT W/ PT INCLUDING PT'S OWN MEDICATION. TELEMONITOR BOX REMOVED. DC INSTRUCTIONS AND DOCUMENTS PROVIDED AND SIGNED BY PT'S DAUGHTER. NO CONCERNS EXPRESSED/IDENTIFIED AT THIS TIME. PT DC'D IN STABLE CONDITION WITH O2 SUPPORT AT 2LPM/NC VIA WHEELCHAIR ACCOMPANIED BY DAUGHTER AND NURSE STUDENT. Addendum: 01/02/17 at 1817 by YOSEF FULLER RN ADDENDUM: PT REFUSED TO TAKE PICTURES ON THE SACRAL AND PERINEAL AREA. NO WOUNDS NOTED ONLY MILD REDNESS (BLANCHABLE).
== END 2017-01-02 11:51 | disposition home or self-care (01) | DRG 378 ==
LOC: ER 10:39 → MED 12:48 → TELE1 13:27
PROVIDERS: ADMIT Internal Medicine; ATTEND Internal Medicine
PROC: 0DB68ZX Excision of Stomach, Via Natural or Artificial Opening Endoscopic, Diagnostic (ICD-10-PCS; principal; 2017-01-01 17:30)
DX: K25.4 Chronic or unspecified gastric ulcer with hemorrhage (principal); J96.10 Chronic respiratory failure, unspecified whether with hypoxia or hypercapnia; E44.0 Moderate protein-calorie malnutrition; E88.09 Other disorders of plasma-protein metabolism, not elsewhere classified; M48.56XA Collapsed vertebra, not elsewhere classified, lumbar region, initial encounter for fracture; I48.91 Unspecified atrial fibrillation; S32.10XA Unspecified fracture of sacrum, initial encounter for closed fracture; Z99.81 Dependence on supplemental oxygen; Z68.1 Body mass index [BMI] 19.9 or less, adult; K29.71 Gastritis, unspecified, with bleeding; D63.8 Anemia in other chronic diseases classified elsewhere; E78.5 Hyperlipidemia, unspecified; F03.90 Unspecified dementia, unspecified severity, without behavioral disturbance, psychotic disturbance, mood disturbance, and anxiety; F32.9 Major depressive disorder, single episode, unspecified; F41.9 Anxiety disorder, unspecified; I10 Essential (primary) hypertension; I25.10 Atherosclerotic heart disease of native coronary artery without angina pectoris; J44.9 Chronic obstructive pulmonary disease, unspecified; K21.9 Gastro-esophageal reflux disease without esophagitis; Z79.899 Other long term (current) drug therapy; Z87.891 Personal history of nicotine dependence; M19.90 Unspecified osteoarthritis, unspecified site; X58.XXXA Exposure to other specified factors, initial encounter; Y93.9 Activity, unspecified; Y92.009 Unspecified place in unspecified non-institutional (private) residence as the place of occurrence of the external cause; K56.41 Fecal impaction; R32 Unspecified urinary incontinence; K44.9 Diaphragmatic hernia without obstruction or gangrene; M43.18 Spondylolisthesis, sacral and sacrococcygeal region
CPT/HCPCS: 36415; 71010-TC; 80048-TC; 80076-TC; 81000-TC; 83735-TC; 84100-TC; 85025-TC; 85730-TC; 86850-TC; 87081-TC; 87086-TC; 88305-TC; 88313-TC; 88342; 97110-TC; 97530-TC; A4606; J2270; J2405; J2704; J7030; Q0162; Z7610

== ENCOUNTER 2017-01-05 16:22 | Emergency (ER) | payer MEDICARE, OTHER ==
[~2017-01-05] VITALS: Ht 152.4 cm; Wt 43.1 kg
[~2017-01-05 16:22] MED LIST changes: -ASPI81TA2 PO; -ATOR10TA PO; -CRAN300T PO; -ENOX30DI SQ; +MYRBETRIQ 25 MG PO; +PANT40TA2 PO; +SERT25TA PO
--- NOTE | 2017-01-05 16:41 | NUR ---
RESIDENCE LEASING AGENT AT BEDSIDE.
--- NOTE | 2017-01-05 16:50 | NUR ---
NEW IV STARTED ON RAC, 20 G. BLOOD DRAWN AND SENT TO LAB.
[2017-01-05 16:59] LABS: BASOPHILS % (AUTO) 0.5 % (0.0-2.0); EOSINOPHILS % (AUTO) 0.1 % (0.0-6.0); HEMATOCRIT 34 % (33-45); HEMOGLOBIN 11.1 g/dL (11.5-14.8); LYMPHOCYTES # (AUTO) 0.4 /CMM (0.8-4.8); LYMPHOCYTES % (AUTO) 5.2 % (20.0-44.0); MEAN CORPUSCULAR HEMOGLOBIN 33 PG (26.0-33.0); MEAN CORPUSCULAR HGB CONC 33 g/dl (31.0-36.0); MEAN CORPUSCULAR VOLUME 99 fL (82-100); MONOCYTES # (AUTO) 0.4 /CMM (0.1-1.30); MONOCYTES % (AUTO) 4.7 % (2.0-12.0); NEUTROPHILS # (AUTO) 7.2 /CMM (1.8-8.9); NEUTROPHILS % (AUTO) 89.5 % (43.0-81.0); PLATELET COUNT (AUTO) 317 /CMM (150-450); RDW COEFFICIENT OF VARIATION 13.7 (11.5-15.0)
[2017-01-05 17:16] LABS: ALANINE AMINOTRANSFERASE 24 U/L (12-78); ALBUMIN 2.9 g/dL (3.4-5.0); ALKALINE PHOSPHATASE 68 U/L (46-116); ASPARTATE AMINOTRANSFERASE 34 U/L (15-37); CALCIUM, SERUM 8.8 mg/dL (8.5-10.1); CHLORIDE 103 mmol/L (98-107); CREATININE 0.4 mg/dL (0.6-1.3); GLUCOSE 109 mg/dL (74-106); LIPASE 51 U/L (73-393); SODIUM SERUM 142 mmol/L (136-145); TOTAL PROTEIN, SERUM 6.5 g/dL (6.4-8.2); UREA NITROGEN, BLOOD 17 mg/dL (7-18)
[2017-01-05 17:22] LABS: BILIRUBIN,TOTAL 0.4 mg/dL (0.2-1.0); CARBON DIOXIDE 42 mmol/L (21-32); POTASSIUM 4.8 mmol/L (3.5-5.1)
[2017-01-05 17:47] LABS: INR 0.94 (0.87-1.13); PROTHROMBIN TIME 9.8 SECS (9.5-12.7)
--- NOTE | 2017-01-05 18:35 | NUR ---
IV removed. Catheter intact and site benign. Pressure and 4x4 applied to site. No bleeding noted.
--- NOTE | 2017-01-05 18:43 | NUR ---
Patient discharged to home in stable condition. Written and verbal after care instructions given. Patient verbalizes understanding of instruction.
[2017-01-05 18:53] VITALS: BP 124/68
== END 2017-01-05 18:54 | disposition home or self-care (01) ==
LOC: ER 16:25
DX: K92.1 Melena (principal); D64.9 Anemia, unspecified; J44.9 Chronic obstructive pulmonary disease, unspecified; F41.9 Anxiety disorder, unspecified; F32.9 Major depressive disorder, single episode, unspecified; F17.200 Nicotine dependence, unspecified, uncomplicated; I25.10 Atherosclerotic heart disease of native coronary artery without angina pectoris; Z87.19 Personal history of other diseases of the digestive system; Z79.82 Long term (current) use of aspirin
CPT/HCPCS: 36415; 71010; 80048; 80076; 83690; 85025; 85730; 86850; 93005; 99285; A4606; Z7610

== ENCOUNTER 2018-08-10 03:54 | Emergency (ER) | payer MEDICARE, OTHER ==
[~2018-08-10] VITALS: Ht 157.5 cm; Wt 36.7 kg
[~2018-08-10 03:54] MED LIST changes: -ALBU8.5H2 IH; +ALBU8.5H8 IH
--- NOTE | 2018-08-10 04:30 | NUR ---
BIB AMBULANCE W/ C/O SOB. NO COUGH. AFEBRILE. PER PT SHE IS ON CONTINUOUS O2 AT HOME. PT WAS PLACED ON A MONITOR AND ON CONTINUOUS O2 . WILL CONT TO MONITOR ,
--- NOTE | 2018-08-10 04:56 | NUR ---
PT IN BED RESTING COMFORTABLY. AWAKE AND ALERT. FAMILY AT THE BED SIDE WAS ADVISED TO GO HOME TO CAPTAIN CANNERY TENDER THE O2 TANK AND COME BACK TO CAPTAIN CANNERY TENDER THE PT.
--- NOTE | 2018-08-10 05:30 | NUR ---
Patient discharged to home in stable condition. Written and verbal after care instructions given. Patient verbalizes understanding of instruction. Pt was assisted to the car with w/c with her o2 tank.
[2018-08-10 06:08] VITALS: BP 118/70
== END 2018-08-10 05:30 | disposition home or self-care (01) ==
LOC: ER 03:54
DX: F41.9 Anxiety disorder, unspecified (principal); J44.9 Chronic obstructive pulmonary disease, unspecified; I25.10 Atherosclerotic heart disease of native coronary artery without angina pectoris; F17.200 Nicotine dependence, unspecified, uncomplicated; Z79.899 Other long term (current) drug therapy

== ENCOUNTER 2019-01-05 10:30 | Inpatient (IN) | payer MEDICARE, OTHER ==
[~2019-01-05] VITALS: Ht 152.4 cm; Wt 40.4 kg
--- NOTE | 2019-01-05 10:44 | NUR ---
PT [id number] FROM HOME "C/O FEVER 100.2. PT IS PLACED ON MONITOR. PT. AAOX4. NO SOB. NOT IN ANY DISTRESS. PATIENT PLACED IN BED 2 W/ SON AT BEDSIDE. WILL CONITINUE TO MONITOR.
[2019-01-05] MEDS ORDERED: ACETAMINOPHEN ES 500 MG TABLET PO ONE (11:00)
[2019-01-05] MEDS ORDERED: IV NS 0.9% 1,000 ML BAG IV ONE (11:00)
[2019-01-05 11:10] LABS: BASOPHILS # (AUTO) 0.1 /CMM (0.0-0.2); BASOPHILS % (AUTO) 0.8 % (0.0-2.0); EOSINOPHILS % (AUTO) 0.3 % (0.0-6.0); HEMATOCRIT 42 % (33-45); HEMOGLOBIN 13.8 g/dL (11.5-14.8); LYMPHOCYTES # (AUTO) 0.9 /CMM (0.8-4.8); MEAN CORPUSCULAR HGB CONC 33 g/dl (31.0-36.0); MEAN CORPUSCULAR VOLUME 97 fL (82-100); MONOCYTES % (AUTO) 11.3 % (2.0-12.0); NEUTROPHILS # (AUTO) 6.5 /CMM (1.8-8.9); NEUTROPHILS % (AUTO) 76.6 % (43.0-81.0); PLATELET COUNT (AUTO) 178 /CMM (150-450); RED BLOOD CELL COUNT(AUTO) 4.36 MIL/uL (4.0-5.2); WHITE BLOOD COUNT (AUTO) 8.5 K/uL (4.3-11.0)
[2019-01-05] MEDS ORDERED: ACETAMINOPHEN ES 500 MG TABLET ONE (11:16)
[2019-01-05 11:21] LABS: CALCIUM, SERUM 8.5 mg/dL (8.5-10.1); CARBON DIOXIDE 34 mmol/L (21-32); CHLORIDE 98 mmol/L (98-107); CREATININE 0.7 mg/dL (0.6-1.3); GLUCOSE 125 mg/dL (74-106); POTASSIUM 3.7 mmol/L (3.5-5.1); SODIUM SERUM 136 mmol/L (136-145); UREA NITROGEN, BLOOD 15 mg/dL (7-18)
[2019-01-05 11:27] LABS: ALANINE AMINOTRANSFERASE 18 U/L (12-78); ALBUMIN 2.9 g/dL (3.4-5.0); ALKALINE PHOSPHATASE 80 U/L (46-116); ASPARTATE AMINOTRANSFERASE 25 U/L (15-37); BILIRUBIN,DIRECT 0.1 mg/dL (0.0-0.2); BILIRUBIN,TOTAL 0.5 mg/dL (0.2-1.0)
[2019-01-05] MEDS ORDERED: CEFTRIAXONE 1GM BAG (ER ONLY) 50 ML IV ONE ×2 (12:30→12:42)
[2019-01-05] MEDS ORDERED: AZITHROMYCIN 500 MG in IV D5W 250 ML IV ONE (12:30)
[2019-01-05 12:41] LABS: APPEARANCE,URINE Cloudy (CLEAR); BILIRUBIN,URINE SMALL (NEGATIVE); BLOOD, URINE Moderate Ery/uL (NEGATIVE); COLOR,URINE Yellow (YELLOW); KETONES,URINE Trace (NEGATIVE); LEUKOCYTE ESTERASE ,URINE Negative (NEGATIVE); NITRITE, URINE Negative (NEGATIVE); PH,URINE 6.5 (5.0-8.0); PROTEIN,URINE Negative (NEGATIVE); UGLUCOSE Negative (NEGATIVE); UROBILINOGEN,URINE 0.2 EU/dL (0.2)
[2019-01-05 12:48] LABS: BACTERIA,URINE Few /HPF (None Seen)
[2019-01-05 12:49] LABS: SQUAMOUS EPITHELIAL CELL,UR Few /HPF (None Seen)
--- NOTE | 2019-01-05 12:59 | NUR ---
REPORT GIVEN TO NICK BRIZUELA
--- NOTE | 2019-01-05 13:25 | NUR ---
MS RN NOTES PATIENT ARRIVED ON [facility]. PATIENT ALERT, ORIENTED X2. DENIES ANY PAIN. NO SOB OR ACUTE DISTRESS NOTED. PATIENT SITUATED IN BED. SKIN ASSESSED. CALL LIGHT WITHIN REACH. PATIENT ORIENTED TO ROOM. WILL CONTINUE TO MONITOR.
--- NOTE | 2019-01-05 13:27 | NUR ---
PT. SENT TO [facility]-T TO CHATA ROMERO FOR ALEE.
[2019-01-05] MEDS ORDERED: ONDANSETRON HCL/PF 4 MG/2 ML VIAL IVP PRN (14:00)
[2019-01-05] MEDS ORDERED: ACETAMINOPHEN 325 MG TABLET PO PRN (14:00)
[2019-01-05] MEDS ORDERED: MAGNESIUM HYDROXIDE 30 ML UDC PO PRN (14:00)
[2019-01-05] MEDS ORDERED: HYDROCODONE/APAP 5/325MG 1 EACH TABLET PO PRN (14:00)
[2019-01-05] MEDS ORDERED: MAG HYDROX/AL HYDROX/SIMETH 30 ML UDC PO PRN (14:00)
[2019-01-05] MEDS ORDERED: Z GUARD REMEDY 2 OZ OINT TP PRN (14:00)
[2019-01-05] MEDS ORDERED: ZOLPIDEM TARTRATE 5 MG TABLET PO PRN (14:00)
[2019-01-05] MEDS: IV NS 0.9% 1,000 ML IV PRN (14:20)
[2019-01-05] MEDS: ENOXAPARIN SODIUM 30 MG/0.3 ML DISP.SYRIN SQ SCH (14:27)
[2019-01-05 16:00] VITALS: BP 108/61
[2019-01-05] MEDS: PANTOPRAZOLE 40 MG TABLET.DR PO SCH (17:00)
--- NOTE | 2019-01-05 18:18 | NUR ---
MS RN NOTES PATIENT IN BED RESTING ALERT, ORIENTED X2. NO SOB OR ACUTE DISTRESS NOTED. ALL DUE MEDICATIONS ADMINISTERED. ALL NEEDS MET. WILL ENDORSE ALEE TO PM SHIFT.
--- NOTE | 2019-01-05 19:30 | NUR ---
EDGE GRINDER MACHINE NOTES SR WITH PAC'S ON TELE MONITOR-79,ON BED SLEEPING,AROUSABLE TO VERBAL STIMULI,BREATHING REGULAR,NOT IN ANY FORM OF DISTRESS.IVF NS AT 75ML/HR RATE ON PROGRESS ON RIGHT AC VIA IV PUMP,SITE PATENT.FALL PRECAUTION OBSERVED,BED ON LOWEST POSITION AND LOCKED.CALL LIGHT IN REACH,NEEDS ANTICIPATED.
[2019-01-05 20:00] VITALS: BP 95/59
[2019-01-05] MEDS: SENNOSIDES 8.6 MG TABLET PO SCH (21:46)
[2019-01-06] VITALS: BP 114/60
--- NOTE | 2019-01-06 02:00 | NUR ---
ALIGNMENT TECHNICIAN NOTES NOTED OLD SKIN TEAR ON THE RIGHT FORE ARM,DRY BLOOD NOTED,CLEANSE WITH NS AND APPLIED MEPILEX.
[2019-01-06] MEDS: IV NS 0.9% 1,000 ML IV PRN (03:43)
[2019-01-06 04:00] VITALS: BP 103/55
--- NOTE | 2019-01-06 06:14 | NUR ---
TRANSMISSION WORKER NOTES SLEPT WELL AT NIGHT,NO EPISODE OF SOB,AFEBRILE.REPOSITION PER PROTOCOL.CALL LIGHT IN REACH,NEEDS ATTENDED WILL ENDORSE TO DAY NURSE FOR ALEE.
[2019-01-06 06:44] LABS: BASOPHILS % (AUTO) 0.4 % (0.0-2.0); EOSINOPHILS % (AUTO) 0.5 % (0.0-6.0); HEMATOCRIT 39 % (33-45); HEMOGLOBIN 12.6 g/dL (11.5-14.8); LYMPHOCYTES % (AUTO) 13.5 % (20.0-44.0); MEAN CORPUSCULAR HGB CONC 33 g/dl (31.0-36.0); MEAN CORPUSCULAR VOLUME 97 fL (82-100); MONOCYTES # (AUTO) 0.6 /CMM (0.1-1.30); MONOCYTES % (AUTO) 8.5 % (2.0-12.0); NEUTROPHILS # (AUTO) 5.4 /CMM (1.8-8.9); NEUTROPHILS % (AUTO) 77.1 % (43.0-81.0); PLATELET COUNT (AUTO) 149 /CMM (150-450); RED BLOOD CELL COUNT(AUTO) 3.98 MIL/uL (4.0-5.2); WHITE BLOOD COUNT (AUTO) 7.1 K/uL (4.3-11.0)
[2019-01-06 06:55] LABS: ALANINE AMINOTRANSFERASE 12 U/L (12-78); ALBUMIN 2.5 g/dL (3.4-5.0); ALKALINE PHOSPHATASE 64 U/L (46-116); ASPARTATE AMINOTRANSFERASE 22 U/L (15-37); BILIRUBIN,TOTAL 0.4 mg/dL (0.2-1.0); CALCIUM, SERUM 7.8 mg/dL (8.5-10.1); CARBON DIOXIDE 29 mmol/L (21-32); CHLORIDE 103 mmol/L (98-107); CREATININE 0.4 mg/dL (0.6-1.3); GLUCOSE 71 mg/dL (74-106); MAGNESIUM 1.7 mg/dL (1.8-2.4); PHOSPHORUS 3.5 mg/dL (2.5-4.9); POTASSIUM 3.6 mmol/L (3.5-5.1); SODIUM SERUM 139 mmol/L (136-145); TOTAL PROTEIN, SERUM 5.3 g/dL (6.4-8.2); UREA NITROGEN, BLOOD 10 mg/dL (7-18)
[2019-01-06 07:30] VITALS: BP 147/60
[2019-01-06] MEDS: ALBUTEROL FS 2.5 MG/3 ML VIAL.NEB NEB SCH ×4 (07:51→20:08)
--- NOTE | 2019-01-06 08:00 | NUR ---
MS RN NOTES PATIENT IN BED RESTING ALERT, ORIENTED X3. PERIPHERAL IV INTACT PATENT. BED IN LOW LOCKED POSITION. CALL LIGHT WITHIN REACH. WILL CONTINUE TO MONITOR.
[2019-01-06] MEDS: SERTRALINE HCL 25 MG TABLET PO SCH (08:19)
[2019-01-06] MEDS: DOCUSATE SODIUM 100 MG CAPSULE PO SCH (08:19)
[2019-01-06] MEDS: PANTOPRAZOLE 40 MG TABLET.DR PO SCH ×2 (08:19→16:54)
[2019-01-06] MEDS: CHOLECALCIFEROL 1,000 UNIT TABLET (VIT D3) PO SCH (08:19)
[2019-01-06] MEDS: MULTIVITAMINS,THERAGRAN 1 UDTAB TABLET PO SCH (08:19)
[2019-01-06] MEDS ORDERED: FLUTICASONE/VILANTEROL 1 EACH BLST.W.DEV IH SCH (09:00)
[2019-01-06 09:01] LABS: ABG BASE EXCESS 3.2 mmol/L; ABG OXYGEN SATURATION 97.2 % (92.0-98.5); ABG PCO2 49.6 mmHg (35.0-45.0); ABG PH 7.386 (7.350-7.450); ABG PO2 101.7 mmHg (75.0-100.0); AaDO2 39.4 mmHg; COHb 0.5 % (0.5-1.5); MetHb 0.8 % (0.0-1.5); O2Hb 95.9 % (94.0-97.0); VENT MODE, BG NC 2L
[2019-01-06 09:13] LABS: CHOLESTEROL 138 mg/dL (<200); HDL CHOLESTEROL 80 mg/dL (40-60); LDL 53 mg/dL (0-99); THYROID STIMULATING HORMONE 2.598 uIU/mL (0.358-3.74); TRIGLYCERIDES 58 mg/dL (30-150)
[2019-01-06] MEDS: ALPRAZOLAM 0.25 MG TABLET PO PRN (09:44)
[2019-01-06] MEDS: Magnesium 1GM/D5W 100ML PREMIX 100 ML IV SCH ×2 (10:34→11:36)
--- NOTE | 2019-01-06 12:45 | NUR ---
MS RN NOTES PATIENT APPEARS TO HAVE LABORED BREATHING. PATIENT STATES SHE IS HAVING TROUBLE BREATHING. VITAL SIGNS CHECKED BP: 11/64 PULSE : 102, RESPIRATION: 22, O2 SATURATION IS 91 ON 2 LITERS OF 02. PATIENT IS ALERT, ORIENTED X3. DR. MARTINEZ MADE AWARE ORDERS FOR STAT CHEST XRAY, STOP IV FLUIDS, GIVE 40MG LASIX. PATIENTS REQUESTS TO BE DNR/DNI DAUGHTER PROVIDED ADVANCE DIRECTIVE ORDERS OBTAINED FOR DNR/DNI. WILL CONTINUE TO MONITOR.
[2019-01-06] MEDS ORDERED: FUROSEMIDE 40 MG/4 ML VIAL IV ONE (13:00)
[2019-01-06] MEDS: CEFTRIAXONE 1 G in IV D5W 50 ML IV SCH (14:12)
[2019-01-06 16:09] VITALS: BP 109/67
[2019-01-06] MEDS: LACTOBACILLUS RHAMNOSUS GG 1 EACH CAP.SPRINK PO SCH (16:54)
[2019-01-06] MEDS: AZITHROMYCIN 500 MG in IV D5W 250 ML IV SCH (16:54)
--- NOTE | 2019-01-06 18:40 | NUR ---
MS RN NOTES PATIENT IN BED RESTING NO SOB OR ACUTE DISTRESS NOTED. PATIENT ALERT, ORIENTED X3. ALL DUE MEDICATIONS ADMINISTERED. ALL NEEDS MET. PATIENTS SOB IMPROVED. PATIENT NOTED WITH SOME SOB. PERIPHERAL IV INTACT PATENT. BED IN LOW LOCKED POSITION, CALL LIGHT WITHIN REACH. WILL ENDORSE ALEE TO PM SHIFT.
--- NOTE | 2019-01-06 19:20 | NUR ---
MS RN NOTES RECEIVED ON BED,ON HIGH FOWLERS POSITION,O2 IN USED AT 2L/NC TO KEEP O2 SAT ABOVE 90%.NOTED ON AND OFF PRODUCTIVE,WET COUGH,AWAITING BREATHING TREATMENT SCHEDULED.SALINE LOCK RIGHT AC INTACT AND PATENT.CALL LIGHT IN REACH,NEEDS ANTICIPATED.
[2019-01-06 19:55] VITALS: BP 110/69
[2019-01-06 20:00] VITALS: BP 110/69
--- NOTE | 2019-01-06 20:08 | NUR ---
MS RN NOTES RT AT BEDSIDE TO ADMINISTER BREATHING TREATMENT SCHEDULED
[2019-01-06] MEDS: ENOXAPARIN SODIUM 30 MG/0.3 ML DISP.SYRIN SQ SCH (21:23)
[2019-01-06] MEDS: SENNOSIDES 8.6 MG TABLET PO SCH (21:24)
[2019-01-07] MEDS: ALPRAZOLAM 0.25 MG TABLET PO PRN (00:01)
--- NOTE | 2019-01-07 00:01 | NUR ---
MS RN NOTES AWAKE,FEELING ANXIOUS,MEDICATED WITH XANAX 0.25MG PO PER PATIENT REQUEST WITH ORDER.
--- NOTE | 2019-01-07 00:30 | NUR ---
MS RN NOTES RT ROGERIO AT BEDSIDE ADMINISTERING BREATHING TREATMENT SCHEDULED.
[2019-01-07] MEDS: ALBUTEROL FS 2.5 MG/3 ML VIAL.NEB NEB SCH ×7 (00:38→23:11)
--- NOTE | 2019-01-07 03:17 | NUR ---
RT PT REQUESTED TO LET HER SLEEP. NO SOB OR DISTRESS NOTED.
--- NOTE | 2019-01-07 06:21 | NUR ---
MS RN NOTES RESTING COMFORTABLY ON BED,NO SOB,O2 IN USED.BREATHING TREATMENT TOLERATED WELL.MED COMPLIANT.EPISODE OF ANXIETY SUBSIDED.SALINE LOCK IN PLACE.IN NO ACUTE DISTRESS.WILL ENDORSE TO DAY NURSE FOR ALEE
--- NOTE | 2019-01-07 07:33 | NUR ---
RN OPENING NOTE PT WAS RECEIVED IN BED AT LOWEST AND LOCKED POSITION WITH SIDE RAILS UPX2, A/O X2-3 BREATHING EVEN AND UNLABORED ON 2L VIA NC, NO S/S OF ANY DISTRESS OR PAIN NOTED AT THIS TIME, IV IS PATENT AND INTACT, SAFETY PRECAUTIONS IN PLACE, CALL LIGHT WITHIN REACH, WILL MONITOR ACCORDINGLY
[2019-01-07] MEDS: MULTIVITAMINS,THERAGRAN 1 UDTAB TABLET PO SCH (08:04)
[2019-01-07] MEDS: LACTOBACILLUS RHAMNOSUS GG 1 EACH CAP.SPRINK PO SCH ×2 (08:04→16:02)
[2019-01-07] MEDS: DOCUSATE SODIUM 100 MG CAPSULE PO SCH (08:04)
[2019-01-07] MEDS: SERTRALINE HCL 25 MG TABLET PO SCH (08:05)
[2019-01-07] MEDS: PANTOPRAZOLE 40 MG TABLET.DR PO SCH ×2 (08:05→16:02)
[2019-01-07] MEDS: CHOLECALCIFEROL 1,000 UNIT TABLET (VIT D3) PO SCH (08:05)
[2019-01-07 08:15] VITALS: BP 106/93
--- NOTE | 2019-01-07 12:30 | NUR ---
RN NOTE PT ENCOURAGED TO GET UP AND OUT OF BED BUT SHE REFUSED STATING SHE WOULD RATHER SLEEP
[2019-01-07] MEDS: CEFTRIAXONE 1 G in IV D5W 50 ML IV SCH (13:02)
[2019-01-07] MEDS: AZITHROMYCIN 500 MG in IV D5W 250 ML IV SCH (14:03)
[2019-01-07 16:00] VITALS: BP 107/58
--- NOTE | 2019-01-07 18:30 | NUR ---
RN CLOSING NOTE PT IN BED AT LOWEST AND LOCKED POSITION WITH SIDE RAILS UPX2, A/O X2-3 BREATHING EVEN AND UNLABORED ON 2L VIA WITH NO DISTRESS OR COMPLAINTS AT THIS TIME, IV IS PATENT AND INTACT, SAFETY PRECAUTIONS IN PLACE, CALL LIGHT WITHIN REACH, ALL NEEDS ATTENDED TO, WILL ENDORSE TO NIGHT RN FOR ALEE.
--- NOTE | 2019-01-07 19:45 | NUR ---
RN NOTES RECEIVED PATIENT AWAKE ON BED, CALM RESTING COMFORTABLY,SAFETY MEASURES IN PLACE, BED IN LOWEST AND LOCKED POSITION WITH SIDE RAILS UPX2, A/O X2-3 BREATHING EVEN AND UNLABORED ON 2L VIA NC,SATING WELL, NO S/S OF ANY DISTRESS OR PAIN NOTED AT THIS TIME, IV IS PATENT AND INTACT, CALL LIGHT WITHIN REACH, DENIES ANY PAIN AND DISCOMFORT AT THIS TIME, NEEDS ANTICIPATED, WILL MONITOR ACCORDINGLY.
[2019-01-07 20:00] VITALS: BP 108/62
[2019-01-07 20:40] VITALS: BP 108/62
[2019-01-07] MEDS: SENNOSIDES 8.6 MG TABLET PO SCH (21:43)
[2019-01-07] MEDS: ENOXAPARIN SODIUM 30 MG/0.3 ML DISP.SYRIN SQ SCH (21:44)
[2019-01-08] MEDS: ALBUTEROL FS 2.5 MG/3 ML VIAL.NEB NEB SCH ×2 (02:54→08:10)
--- NOTE | 2019-01-08 06:41 | NUR ---
RN NOTES ALL NEEDS ATTENDED AND MET ABLE TO REST AND SLEPT WITH LONG INTERVALS, SAFETY MEASURES EMPHASIZED, CALL LIGHT WITHIN EASY REACH, IV ACCESS INTACT AND PATENT, KEPT CLEAN DRY AND COMFORTABLE, WILL ENDORSE TO AM NURSE FOR CONTINUITY OF CARE.
[2019-01-08 07:44] VITALS: BP 106/64
--- NOTE | 2019-01-08 08:00 | NUR ---
RN NOTES RECEIVED PATIENT IN THE BED 83 Y/OLD FEMALE ON NC 2L. PATIENT A/O X3, STABLE, NO ACUTE RESPIRATORY DISTRESS, V/S TAKEN STABLE. ADMINISTERED SCHEDULED MEDICATION. PATIENT REFUSED PAIN, ABLE TO SWALLOW MEDICATION HOLE, TOTAL CARE, HAS LATS OF BRUISES ON UPPER AND LOWER EXTREMITIES. ALSO GETTING BREATHING TREATMENT BT RT. ASSIST PATIENT TURN AND REPOSTION Q2HR, NEEDS ATTENDED AND ANTICIPATED, CALL LIGHT WITHIN TO REACH. SAFETY PRECAUTION MAINTAINED ALL THE TIME.
--- NOTE | 2019-01-08 09:00 | NUR ---
RN NOTES PER HOSPITALIST PATIENT WILL D/C HOME. CALLED AND NOTIFIED TO THE SON NAME JOEL.
[2019-01-08] MEDS ORDERED: AZIT250T PO (09:26)
[2019-01-08] MEDS: SERTRALINE HCL 25 MG TABLET PO SCH (09:31)
[2019-01-08] MEDS: LACTOBACILLUS RHAMNOSUS GG 1 EACH CAP.SPRINK PO SCH (09:31)
[2019-01-08] MEDS: MULTIVITAMINS,THERAGRAN 1 UDTAB TABLET PO SCH (09:31)
[2019-01-08] MEDS: DOCUSATE SODIUM 100 MG CAPSULE PO SCH (09:31)
[2019-01-08] MEDS: PANTOPRAZOLE 40 MG TABLET.DR PO SCH (09:31)
[2019-01-08] MEDS: CHOLECALCIFEROL 1,000 UNIT TABLET (VIT D3) PO SCH (09:31)
--- NOTE | 2019-01-08 11:41 | NUR ---
LETTER CARRIER NOTES PATIENT DISCHARGE AT THIS TIME GOING HOME WITH MOTORCYCLE POLICE, STABLE. PATIENT A/O X3, ON O2 2L NC, HAS NO ACUTE RESPIRATORY DISTRESS, V/S STABLE, REFUSED PAIN. MED RECONCILIATION AND DISCHARGE ORDER REVIEWED AND EXPLAINED TO PATIENT AND FAMILY MEMBER NAME DMITRY. PATIENT VERBALIZED UNDERSTANDING. BELONGING WITH THE PATIENT, PATIENT SIGN PAPERWORK, PICTURE TAKEN. PRESCRIPTION ELECTRONICALLY DONE SEND TO THE A PHARMACY BY HOSPITALIST Dr MIXON. NOTIFIED DMITRY FAMILY FRIEND TO [employer] FROM PHARMACY. PATIENT WILL FOLLOW PRIMARY MD IN 2 WEEKS. ESCORTED PATIENT TO THE LOBBY FOR SAFETY . PATIENT C[employer] P[employer] IRON BY FAMILY FRIEND NAME DMITRY PHONE #[phone]. PATIENT SON LINDSAY AWARE OF, AND WAITING AT HOME.
[2019-01-08] MEDS ORDERED: AZITHROMYCIN 250 MG TABLET PO SCH (15:00)
== END 2019-01-08 12:00 | disposition home or self-care (01) | DRG 871 ==
LOC: ER 10:31 → TELE 11:39 → MED 01-06 08:11
PROVIDERS: ADMIT Internal Medicine; ATTEND Internal Medicine
DX: A41.9 Sepsis, unspecified organism (principal); J18.9 Pneumonia, unspecified organism; G93.41 Metabolic encephalopathy; J96.21 Acute and chronic respiratory failure with hypoxia; E44.0 Moderate protein-calorie malnutrition; J44.1 Chronic obstructive pulmonary disease with (acute) exacerbation; Z68.1 Body mass index [BMI] 19.9 or less, adult; J44.0 Chronic obstructive pulmonary disease with (acute) lower respiratory infection; F41.9 Anxiety disorder, unspecified; E11.9 Type 2 diabetes mellitus without complications; I10 Essential (primary) hypertension; I25.10 Atherosclerotic heart disease of native coronary artery without angina pectoris; K21.9 Gastro-esophageal reflux disease without esophagitis; Z87.891 Personal history of nicotine dependence
CPT/HCPCS: 36415; 36600; 71045-TC; 80048-TC; 80053-TC; 80061-TC; 80076-TC; 81000-TC; 82803-TC; 82962-TC; 83605-TC; 83735-TC; 84100-TC; 84443-TC; 84484-TC; 85025-TC; 85730-TC; 87040-TC; 87081-TC; 87086-TC; 92526; 92611-TC; 94799-TC; 97112-TC; 97530-TC; G0378; J0456; J0696; J1650; J1940; J3475; J7030; J7060